=== PATIENT | female | born 1960 | race Two or more races ===

== ENCOUNTER 2019-01-19 08:52 | Day surgery (SDC) | payer OTHER ==
[2019-01-19] MEDS ORDERED: MIDAZOLAM HCL 2 MG/2ML VIAL ONE (12:17)
[2019-01-19] MEDS ORDERED: BUPIVACAINE 0.5 % PF 150 MG/30 ML VIAL ONE (12:56)
== END 2019-01-19 14:55 | disposition home or self-care (01) ==
LOC: DS 08:52
PROVIDERS: ATTEND Orthopaedic Surgery
DX: G56.02 Carpal tunnel syndrome, left upper limb (principal); M25.532 Pain in left wrist; G47.33 Obstructive sleep apnea (adult) (pediatric); E11.9 Type 2 diabetes mellitus without complications
CPT/HCPCS: 25115; 36415; 64721; 84702; A4565; A6402; J0690; J2250; J2704; J3490

== ENCOUNTER 2019-06-12 08:30 | Day surgery (SDC) | payer OTHER ==
[2019-06-12] MEDS ORDERED: BUPIVACAINE 0.5 % PF 150 MG/30 ML VIAL ONE (11:27)
== END 2019-06-12 18:00 | disposition home or self-care (01) ==
LOC: DS 08:30
PROVIDERS: ATTEND Orthopaedic Surgery
DX: G56.01 Carpal tunnel syndrome, right upper limb (principal); M65.841 Other synovitis and tenosynovitis, right hand; E78.5 Hyperlipidemia, unspecified; G47.33 Obstructive sleep apnea (adult) (pediatric)
CPT/HCPCS: 25115; 64721; 87635; A6402; J2405 ×2; J2704; J3490